=== PATIENT | male | born 1935 | race Caucasian/White ===

== ENCOUNTER 2017-08-18 19:34 | Outpatient (CLI) | payer MEDICARE | END 2017-08-18 19:35 | disposition critical access hospital (66) | LOC: EMS 19:34 | PROVIDERS: ATTEND Surgery | DX: I46.9 Cardiac arrest, cause unspecified (principal) | CPT/HCPCS: A0425; A0427 ==

== ENCOUNTER 2017-08-18 19:45 | Emergency (ER) | payer MEDICARE ==
[2017-08-18] MEDS ORDERED: SODIUM CHLORIDE 0.9% 1,000 ML IV ONE ×3 (19:52)
--- NOTE | 2017-08-18 19:54 | ED Physician Documentation ---
History of Present Illness - Stated complaint Stated Complaint: CODEBLUE/CPR - Chief complaint Chief Complaint: Neuro - History obtained from History obtained from: EMS - History of Present Illness Timing: How many minutes ago (20) - Additonal information Additional information: Patient is an 82-year-old male with unclear past medical history who had a witnessed cardiac arrest at home today by his . EMS states that defib x 2. Epi x2. ROSC after 10 mins of CPR. Pt is being externally paced. Intubated with EMS. No family available for history. Review of Systems Unable to obtain: Intubated PD PAST MEDICAL HISTORY - Past Medical History Cardiovascular: Hypertension, Valve disorder, Other Respiratory: None Endocrine/Autoimmune: None GI: None : None HEENT: None Psych: None Musculoskeletal: None Derm: Psoriasis, Other - Past Surgical History Cardiovascular: Valve replacement HEENT: Cataracts, Tonsil/Adenoidectomy Derm: Skin cancer surgery - Present Medications Home Medications: Ambulatory Orders Medication Instructions Recorded Confirmed Benazepril/Hydrochlorothiazide 40 mg ORAL DAILY 04/11/14 04/26/14 [Benazepril-Hctz 20-25 mg Tab] Indapamide 2.5 mg ORAL DAILY 04/11/14 04/26/14 Multivitamin [Multi-Day Vitamins] 1 each PO DAILY 04/12/14 04/26/14 Amlodipine Besylate 10 mg PO DAILY 08/18/17 08/18/17 Amoxicillin 08/18/17 Warfarin Sodium 08/18/17 Warfarin Sodium 08/18/17 - Allergies Allergies/Adverse Reactions: Allergies Allergy/AdvReac Type Severity Reaction Status Date / Time No Known Drug Allergies Allergy Verified 08/18/17 20:03 PD ED PE NORMAL - Vitals Vital signs reviewed: Yes - General General: Other (intubated, unresponsive) - HEENT HEENT: Moist mucous membranes, Other (intubated) - Cardiac Cardiac: RRR - Respiratory Respiratory: Other (crackles B) - Abdomen Abdomen: Soft - Derm Derm: Other (cool, dry) - Extremities Extremities: No deformity - Neuro Eye Opening: None Motor: None Verbal: None GCS Score: 3 Results - Vitals Vitals: Vital Signs - 24 hr 08/18/17 08/18/17 08/18/17 19:45 19:57 19:58 Temperature 36.5 C Heart Rate 53 L 61 55 L Respiratory 14 19 20 Rate Blood Pressure 141/123 H 69/41 L 83/46 L O2 Saturation 100 99 98 08/18/17 08/18/17 08/18/17 20:01 20:04 20:11 Temperature Heart Rate 60 52 L 53 L Respiratory 19 19 22 Rate Blood Pressure 90/51 L 90/51 L 100/44 L O2 Saturation 99 99 98 08/18/17 20:12 Temperature Heart Rate 61 Respiratory Rate Blood Pressure O2 Saturation Oxygen O2 Source Mechanical ventilator - EKG (time done) 1946 Rate: Rate (enter#) (54) Rhythm: Other (3rd degree heart block) Intervals: 3rd degree AVB, Wide QRS Ischemia: ST depression (V2-4 c/w posterior OK) - Labs Labs: Laboratory Tests 08/18/17 08/18/17 08/18/17 19:55 19:55 19:55 WBC 8.5 RBC 3.00 L Hgb 9.0 L Hct 27.5 L MCV 91.5 MCH 29.8 MCHC 32.6 RDW 16.3 H Plt Count 305 MPV 8.0 Neut # Not Reportable Lymph # Not Reportable Divide # Not Reportable Eos # Not Reportable Baso # Not Reportable Absolute Nucleated RBC Not Reportable Total Counted 100 Band Neuts % (Manual) 1 Reactive Lymphs % (Man) 1 Abnorm Lymph % (Manual) 0 Metamyelocytes % 1 H Nucleated RBC % Not Reportable Neutrophils # (Manual) 5.7 Lymphocytes # (Manual) 2.0 Monocytes # (Manual) 0.3 Eosinophils # (Manual) 0.3 Basophils # (Manual) 0.0 Differential Comment MANUAL DIFFERENTIAL Platelet Estimate NORMAL (130-450,000) Platelet Morphology 1+ GIANT PLATELETS RBC Morph Micro Appear NORMAL APPEARANCE PT 51.7 H INR 4.9 H* Sodium 134 L Potassium 4.5 Chloride 100 L Carbon Dioxide 20 L Anion Gap 14.0 H BUN 32 H Creatinine 2.0 H Estimated GFR (MDRD) 32 L Glucose 308 H Calcium 8.4 L Total Bilirubin 0.6 AST 69 H ALT 45 Alkaline Phosphatase 80 Troponin I Total Protein 6.6 L Albumin 3.2 Globulin 3.4 Albumin/Globulin Ratio 0.9 L Lipase 40 08/18/17 19:55 WBC RBC Hgb Hct MCV MCH MCHC RDW Plt Count MPV Neut # Lymph # Divide # Eos # Baso # Absolute Nucleated RBC Total Counted Band Neuts % (Manual) Reactive Lymphs % (Man) Abnorm Lymph % (Manual) Metamyelocytes % Nucleated RBC % Neutrophils # (Manual) Lymphocytes # (Manual) Monocytes # (Manual) Eosinophils # (Manual) Basophils # (Manual) Differential Comment Platelet Estimate Platelet Morphology RBC Morph Micro Appear PT INR Sodium Potassium Chloride Carbon Dioxide Anion Gap BUN Creatinine Estimated GFR (MDRD) Glucose Calcium Total Bilirubin AST ALT Alkaline Phosphatase Troponin I 0.23 Total Protein Albumin Globulin Albumin/Globulin Ratio Lipase - Rads (name of study) cxr Radiology: Prelim report reviewed, EMP read contemporaneously, See rad report ( Previous sternotomy. Mild cardiac enlargement. No pneumothorax or large effusions. Diffuse interstitial opacities about both lungs affecting the right lung greater than the left. Suspect that this represents congestive heart failure. Correlate clinically. ) PD MEDICAL DECISION MAKING - ED course Complexity details: reviewed results, re-evaluated patient, considered differential, d/w wardrobe image consultant (1999 - Dr. Cardenas at [facility] and graciously accepts in transfer.) ED course: Patient is an 82 yo M with a posterior wall STEMI and 3rd degree heart block. External pacing turned on at a rate of 60 with good capture. ROSC maintained. IVF given. Heparin given. ETT pushed in 3 cm after CXR. Transfer to [facility]. Discussed with [address] Cardenas, ED physician who graciously accepts in transfer. No old records available. This document was made in part using voice recognition software. While efforts are made to proofread this document, sound alike and grammatical errors may occur. - Critical Care Time(min): 30 Time Includes: Direct patient care, Review records, Reassess patient, Document care, Coordinate care, See progress note Data interpretation: See progress note Procedures included in critical care time: See progress note Procedures excluded from critical care time: EKG, See progress note Departure - Departure Disposition: 02 Transfer Acute Care Hosp Clinical Impression: Complete heart block by electrocardiogram STEMI (ST elevation myocardial infarction) Qualifiers: Involved coronary artery: unspecified coronary artery Qualified Code(s): I21.3 - ST elevation (STEMI) myocardial infarction of unspecified site Condition: Critical Discharge Date/Time: 08/18/17 20:20
[2017-08-18] MEDS ORDERED: HEPARIN 5,000 UNIT/ML VIAL IVP STA (19:56)
[2017-08-18 20:00] LABS: BASOPHILS % (AUTO) 1.4 %; EOSINOPHILS % (AUTO) 3.9 %; MEAN CORPUSCULAR HEMOGLOBIN 29.8 pg (27.0-31.0); MEAN CORPUSCULAR HGB CONC 32.6 g/dL (32.0-36.0); MEAN CORPUSCULAR VOLUME 91.5 fL (80.0-94.0); MONOCYTES % (AUTO) 4.6 %; NEUTROPHILS % (AUTO) 63.1 %; PLT - PLATELET COUNT 305 10^3/uL (130-450); RED CELL DISTRIBUTION WIDTH 16.3 % (12.0-15.0); WHITE BLOOD COUNT 8.5 x10^3/uL (4.8-10.8)
[2017-08-18 20:05] LABS: ABNORMAL LYMPHS % (MANUAL) 0 %
[2017-08-18 20:13] LABS: ALBUMIN 3.2 g/dL (3.2-5.5); ALBUMIN/GLOBULIN RATIO 0.9 (1.0-2.2); BILIRUBIN,TOTAL 0.6 mg/dL (0.2-1.0); CALCIUM 8.4 mg/dL (8.5-10.3); TOTAL PROTEIN 6.6 g/dL (6.7-8.2)
--- NOTE | 2017-08-18 20:19 | XRAY Preliminary Report ---
Exam: XR CHEST 1 VIEW IMPRESSION: 1. Previous sternotomy. Mild cardiac enlargement. 2. No pneumothorax or large effusions. 3. Diffuse interstitial opacities about both lungs affecting the right lung greater than the left. Oliva spected this represents congestive heart failure. Correlate clinically. [facility] SITE ID: [id number]
[2017-08-18 20:31] LABS: PT - PROTHROMBIN TIME 51.7 secs (9.9-12.6)
--- NOTE | 2017-08-18 20:31 | XRAY Report ---
EXAM: CHEST RADIOGRAPHY EXAM DATE: 08/18/2017 08:04 PM. CLINICAL HISTORY: Post intubation. COMPARISON: None. TECHNIQUE: 1 view. FINDINGS: Lungs/Pleura: Right hemidiaphragm is mildly elevated. No pneumothorax. Diffuse, right greater than le ft lung interstitial opacities are present. No large effusions noted. Mediastinum: Previous sternotomy. The inferior most sternal wire appears to be broken. Mild cardiac e nlargement. EKG leads overlie the chest. Other: ET tube terminates 6 cm above the [place]. IMPRESSION: 1. Previous sternotomy. Mild cardiac enlargement. 2. No pneumothorax or large effusions. 3. Diffuse interstitial opacities about both lungs affecting the right lung greater than the left. Oliva spect that this represents congestive heart failure. Correlate clinically. [facility] Referring Provider Line: [phone] SITE ID: [id number]
[2017-08-18 20:41] LABS: INR 4.9 (0.8-1.2)
[2017-08-18 21:06] LABS: BAND NEUTROPHILS % (MANUAL) 1 %; DIFFERENTIAL COMMENT MANUAL DIFFERENTIAL; EOSINOPHILS # (MANUAL) 0.3 10^3/uL (0-0.7); LYMPHOCYTES % (MANUAL) 23 %; METAMYELOCYTES % (MANUAL) 1 %; MONOCYTES # (MANUAL) 0.3 10^3/uL (0.0-1.0); NEUTROPHILS # (MANUAL) 5.7 10^3/uL (1.5-6.6); NEUTROPHILS % (MANUAL) 66 %; PLATELET ESTIMATE, MANUAL NORMAL (130-450,000) (NORMAL); PLATELET MORPHOLOGY 1+ GIANT PLATELETS (NORMAL); RBC MORPHOLOGY (MULTIPLE) NORMAL APPEARANCE (NORMAL)
[2017-08-18 23:00] VITALS: BP 100/44
== END 2017-08-18 20:20 | disposition short-term general hospital (02) ==
LOC: EDUNIT# → EDBD → ED 19:45
DX: I21.29 ST elevation (STEMI) myocardial infarction involving other sites (principal); I44.2 Atrioventricular block, complete; R94.31 Abnormal electrocardiogram [ECG] [EKG]; I10 Essential (primary) hypertension; Z95.2 Presence of prosthetic heart valve; Z79.01 Long term (current) use of anticoagulants; Z85.828 Personal history of other malignant neoplasm of skin
CPT/HCPCS: 36415; 36680; 51702; 71010; 80053; 83690; 84484; 85025; 85610; 92950; 92953; 93005; 96374; 99285; 99291

== ENCOUNTER 2017-08-18 20:26 | Outpatient (CLI) | payer MEDICARE | END 2017-08-18 20:27 | disposition short-term general hospital (02) | LOC: EMS 20:26 | PROVIDERS: ATTEND Surgery | DX: I21.3 ST elevation (STEMI) myocardial infarction of unspecified site (principal) | CPT/HCPCS: A0425; A0426 ==